=== PATIENT | female | born 1980 | race Caucasian/White ===

== ENCOUNTER 2018-02-03 11:37 | Emergency (ER) | payer OTHER ==
[~2018-02-03] VITALS: Ht 170.2 cm; Wt 63.5 kg
[2018-02-03] MEDS ORDERED: NORFLEX100 MG PO (11:59)
[2018-02-03] MEDS ORDERED: NAPROSYN500 MG PO (11:59)
[2018-02-03 12:40] VITALS: BP 123/69
== END 2018-02-03 12:41 | disposition home or self-care (01) ==
LOC: ER 11:37
DX: S70.211A Abrasion, right hip, initial encounter (principal); S00.91XA Abrasion of unspecified part of head, initial encounter; Z88.2 Allergy status to sulfonamides; V03.99XA Pedestrian with other conveyance injured in collision with car, pick-up truck or van, unspecified whether traffic or nontraffic accident, initial encounter; Y93.89 Activity, other specified; Y92.89 Other specified places as the place of occurrence of the external cause; Y99.8 Other external cause status

== ENCOUNTER → 2018-02-23 | Outpatient (CLI) | payer OTHER ==
[~2018-02-23] MED LIST: NAPROSYN500 MG PO; NORFLEX100 MG PO
== END ==
LOC: RAD 16:06
DX: M79.605 Pain in left leg (principal); M79.89 Other specified soft tissue disorders

== ENCOUNTER → 2020-10-22 | Outpatient (CLI) | payer OTHER | LOC: LAB 10:07 | PROVIDERS: ATTEND Family Medicine | DX: Z20.828 Contact with and (suspected) exposure to other viral communicable diseases (principal) ==